=== PATIENT | male | born 1990 | race Caucasian/White ===

== ENCOUNTER 2017-06-15 13:33 | Emergency (ER) | payer OTHER ==
[2017-06-15 13:42] VITALS: BP 123/81; PULSE 94; RESP 20; TEMP 98
--- NOTE | 2017-06-15 13:48 | ED ---
General Adult HPI - General Chief complaint: Dental/Oral Stated complaint: dental pain Time Seen by Provider: 06/15/17 13:38 Source: patient, RN notes reviewed Mode of arrival: ambulatory Limitations: no limitations - History of Present Illness Initial comments: 26-year-old male presents emergency Department chief complaint of left-sided facial swelling. Patient has had these symptoms for the past day or so. Patient states started Lotensin dental pain after eating a few days agoswollen. He has an appointment with his dentist this week but due to the swelling is concerning may not treat him. He denies any fever chills. Patient denies any difficulty opening or closing mouth. Patient denies any radiation the neck. Patient states is not currently having any other symptoms at this time.Patient denies any recent fever, chills, shortness of breath, chest pain, back pain, abdominal pain, nausea vomiting, numbness or tingling, dysuria or hematuria, constipation or diarrhea, headaches or visual changes, or any other current symptoms. - Related Data Previous Rx's Medication Instructions Recorded Penicillin V Potassium [Pen Vee K] 500 mg PO TID #40 tab 06/15/17 traMADol HCl [Ultram] 50 mg PO Q6H PRN #20 tab 06/15/17 Allergies Allergy/AdvReac Type Severity Reaction Status Date / Time No Known Allergies Allergy Verified 06/15/17 13:41 Review of Systems ROS Statement: Those systems with pertinent positive or pertinent negative responses have been documented in the HPI. ROS Other: All systems not noted in ROS Statement are negative. Past Medical History Past Medical History: No Reported History History of Any Multi-Drug Resistant Organisms: None Reported Past Surgical History: Adenoidectomy, Orthopedic Surgery, Tonsillectomy Past Psychological History: No Psychological Hx Reported Smoking Status: Current every day smoker Past Alcohol Use History: Occasional Past Drug Use History: None Reported General Exam Limitations: no limitations General appearance: alert, in no apparent distress Head exam: Present: other (left sided facial swelling) Expanded Ear exam: Present: normal external inspection Teeth exam: Present: dental caries (diffusely), gingival enlargement (along left lower jaw with no obvious abscess noted) Neck exam: Present: normal inspection. Absent: tenderness, meningismus, lymphadenopathy Respiratory exam: Present: normal lung sounds bilaterally. Absent: respiratory distress, wheezes, rales, rhonchi, stridor Cardiovascular Exam: Present: regular rate, normal rhythm, normal heart sounds. Absent: systolic murmur, diastolic murmur, rubs, gallop, clicks Neurological exam: Present: alert, oriented X3 Psychiatric exam: Present: normal affect, normal mood Skin exam: Present: warm, dry, intact, normal color. Absent: rash Course Vital Signs 06/15/17 13:39 Temperature 98.0 F Pulse Rate 94 Respiratory 20 Rate Blood Pressure 123/81 O2 Sat by Pulse 100 Oximetry Medical Decision Making - Medical Decision Making 26-year-old male presents withleft-sided dental caries with associated infection. This time we started patient on antibiotics. We did discuss follow- up we discussed return parameters outpatient family's questions. They stated the [facility] management plan. All questions have been answered. This time they will be discharged home. Disposition Clinical Impression: Dental caries Disposition: HOME SELF-CARE Condition: Stable Instructions: Dental Caries (ED) Additional Instructions: Please use medication as discussed. Please follow up with family doctor if symptoms have not improved over the next two days. Please return to the emergency room if your symptoms increase or worsen or for any other concerns. Prescriptions: Penicillin V Potassium [Pen Vee K] 500 mg PO TID #40 tab traMADol HCl [Ultram] 50 mg PO Q6H PRN #20 tab PRN Reason: Pain Referrals: Elizabet Reynaga MD [STAFF PHYSICIAN] - 1-2 days Time of Disposition: 13:48
== END 2017-06-15 13:59 | disposition home or self-care (01) ==
LOC: EC 13:33
DX: K02.9 Dental caries, unspecified (principal); F17.200 Nicotine dependence, unspecified, uncomplicated
CPT/HCPCS: 99282

== ENCOUNTER 2020-02-12 13:53 | Emergency (ER) | payer OTHER ==
[2020-02-12 14:00] VITALS: BP 121/82; PULSE 93; TEMP 98.4
[2020-02-12] MEDS ORDERED: PENICILLIN VK 500MG STARTER 4 TAB BTL PO STA (14:16)
--- NOTE | 2020-02-12 14:20 | ED ---
General Adult HPI - General Chief complaint: Dental/Oral Stated complaint: abscess on tooth Time Seen by Provider: 02/12/20 14:02 Source: patient, RN notes reviewed Mode of arrival: ambulatory Limitations: no limitations - History of Present Illness Initial comments: Patient is a pleasant 29-year-old male presenting to the emergency Department with complaints of dental pain. Onset was a day or 2 ago. Patient is now having some swelling of his left lower jaw. Patient has tasted some purulent drainage from the area. Patient does have history of similar symptoms previously. Patient is unable to get into a dentist at this time. No fevers. No dyspnea or difficulty tolerating oral intake. - Related Data Previous Rx's Medication Instructions Recorded Penicillin V Potassium [Pen Vee K] 500 mg PO TID #40 tab 06/15/17 traMADol HCl [Ultram] 50 mg PO Q6H PRN #20 tab 06/15/17 Penicillin V Potassium [Pen Vee K] 500 mg PO QID #40 tablet 02/12/20 Allergies Allergy/AdvReac Type Severity Reaction Status Date / Time No Known Allergies Allergy Verified 02/12/20 13:58 Review of Systems ROS Statement: Those systems with pertinent positive or pertinent negative responses have been documented in the HPI. ROS Other: All systems not noted in ROS Statement are negative. Constitutional: Denies: fever, chills Eyes: Denies: eye pain ENT: Denies: ear pain Respiratory: Denies: cough Cardiovascular: Denies: chest pain Endocrine: Denies: fatigue Past Medical History Past Medical History: No Reported History History of Any Multi-Drug Resistant Organisms: None Reported Past Surgical History: Adenoidectomy, Orthopedic Surgery, Tonsillectomy Past Psychological History: No Psychological Hx Reported Smoking Status: Current every day smoker Past Alcohol Use History: None Reported Past Drug Use History: Marijuana General Exam Limitations: no limitations General appearance: alert, in no apparent distress Head exam: Present: normocephalic Eye exam: Present: normal appearance ENT exam: Present: other (Left lower premolar with swelling consistent with early abscess. Externally there is mild mandibular swelling. There is tenderness associated.) Neck exam: Present: normal inspection Respiratory exam: Present: normal lung sounds bilaterally Cardiovascular Exam: Present: regular rate, normal rhythm Skin exam: Present: normal color Course Vital Signs 02/12/20 13:59 Temperature 98.4 F Pulse Rate 93 Respiratory 18 Rate Blood Pressure 121/82 O2 Sat by Pulse 97 Oximetry Procedures - Nerve Block Consent Obtained: verbal consent Local Anesthetic Used: Lidocaine 1% Side: left Intraoral Nerve Block: supraperiosteal Procedure Successful: Yes Complications: none Patient Tolerated Procedure: well, no complications Disposition Clinical Impression: Dental abscess Disposition: HOME SELF-CARE Condition: Stable Instructions (If sedation given, give patient instructions): Dental Abscess (ED) Additional Instructions: Please follow-up with dentist as soon as possible. Also follow-up with primary care physician in the next couple days for recheck. Return for increased pain, swelling, fevers, difficulty breathing, difficulty tolerating fluids, worsening symptoms or other concerns. Prescription sent to [facility] [place] Prescriptions: Penicillin V Potassium [Pen Vee K] 500 mg PO QID #40 tablet Is patient prescribed a controlled substance at d/c from ED?: No Referrals: Anselmo Lawrence [STAFF PHYSICIAN] - 1-2 days Time of Disposition: 14:20
[2020-02-12] MEDS ORDERED: LIDOCAINE 1% INJ 10MG/ML (20 ML MDV) SQ ONE (14:42)
[2020-02-12] MEDS ORDERED: LIDOCAINE 2% INJ 20 MG/ML (20 ML MDV) MISCELLANE STA (14:46)
[2020-02-12 14:51] VITALS: RESP 20
== END 2020-02-12 14:52 | disposition home or self-care (01) ==
LOC: EC 13:53
DX: K04.7 Periapical abscess without sinus (principal); F17.200 Nicotine dependence, unspecified, uncomplicated
CPT/HCPCS: 64450; 99282; J2001